=== PATIENT | male | born 1955 | race Two or more races ===

== ENCOUNTER 2021-06-11 22:14 | Emergency (ER) | payer OTHER ==
[~2021-06-11] VITALS: Ht 167.6 cm; Wt 89.5 kg
[2021-06-11 22:38] LABS: BASO # 0.1 x10^3/uL (0.0-0.2); BASO % 1 % (0-3); EOS # 0.2 x10^3/uL (0.0-0.7); EOS % 4 % (0-3); HEMATOCRIT 41.7 % (39.0-53.0); HEMOGLOBIN 14.2 g/dL (13.0-17.5); LYMPH # 2.2 x10^3/uL (1.0-4.8); LYMPH % 42 % (24-48); MEAN CORPUSCULAR HEMOGLOBIN 29 pg (25-35); MEAN CORPUSCULAR HGB CONC 34 g/dL (31-37); MEAN CORPUSCULAR VOLUME 84 fL (79-100); MONO # 0.4 x10^3/uL (0.0-1.1); MONO % 8 % (0-9); NEUT # 2.4 x10^3/uL (1.8-7.7); NEUT % 45 % (31-73); PLATELET COUNT 179 x10^3/uL (140-400); RED BLOOD COUNT 4.96 x10^6/uL (4.30-5.70); RED CELL DISTRIBUTION WIDTH 15.1 % (11.5-14.5); WHITE BLOOD COUNT 5.3 x10^3/uL (4.0-11.0)
[2021-06-11 22:47] LABS: CALCIUM 8.8 mg/dL (8.5-10.1); CREATININE 1.1 mg/dL (0.7-1.3); GFR 66.8; POTASSIUM 3.6 mmol/L (3.5-5.1); PROTHROMBIN TIME PATIENT 12.6 SEC (11.7-14.0)
[2021-06-11 22:52] LABS: ALBUMIN 4.2 g/dL (3.4-5.0); ALBUMIN/GLOBULIN RATIO 1.2 (1.0-1.7); TOTAL BILIRUBIN 0.9 mg/dL (0.2-1.0); TOTAL PROTEIN 7.7 g/dL (6.4-8.2)
--- NOTE | 2021-06-11 23:06 | RAD ---
EXAM: AP View of the chest DATE: 06/11/2021 11:00 PM INDICATION: Reason: chest pain / Spl. Instructions: / History: COMPARISON: No Prior FINDINGS: The heart is not enlarged. Aorta is tortuous. Mediastinal and hilar contours are normal. Patchy airspace opacities peripheral left lung and left lung base. Low lung volumes. No pleural effusion or pneumothorax. IMPRESSION: Patchy left-sided airspace opacities possibly atelectasis or developing consolidation. Electronically signed by: Adam Mendiola MD (06/11/2021 11:04 PM) [facility]
[2021-06-11] MEDS ORDERED: ASPIRIN CHEWABLE 81 MG TABLET. PO ONE (23:30)
[2021-06-12] MEDS ORDERED: KETOROLAC 30 MG/ML VIAL. IVP ONE (01:00)
[2021-06-12] MEDS ORDERED: ACET500T68 PO (03:20)
[2021-06-12] MEDS ORDERED: FAMO-63 PO (03:20)
--- NOTE | 2021-06-12 03:20 | PHYS DOC ---
Past Medical History Past Surgical History: No Surgical History Smoking Status: Never Smoker Alcohol Use: Occasionally Adult General Chief Complaint Chief Complaint: CHEST PAIN HPI HPI The patient is a 65-year-old male with a history of hypertension and inv-jasbktl-pynnwmriv diabetes. He is a non-smoker. He has no no other known medical problems which he takes daily medication. He presents for evaluation of 2 days of occasional sharp spasms of transient focal left-sided chest discomfort localizing a focal site underneath the nipple of his left breast. He will have twinges of discomfort which last for just a few seconds at a time and then resolve. Symptoms are not present currently. He last had a few seconds of discomfort while he was in the car on the way here. Discomfort is worse with movement of the arms and twisting of the torso. It is not worse with deep breathing or with exertion. He denies any other focal or specific symptoms and specifically denies fevers, nausea or vomiting, cold sweats or chills, upper respiratory congestion/rhinorrhea, cough, sore throat, shortness of breath, abdominal pain of any kind, flank pain, midline back pain, dysuria, hematuria, polyuria or oliguria, changes in bowel habits, pain or swelling to arms or legs. Patient is alert, pleasantly and appropriately interactive and in no acute distress with appropriate vital signs upon initial evaluation here in the emergency department. Review of Systems Review of Systems A 12 point review of systems was completed and was negative except where noted in HPI above. Current Medications Current Medications Current Medications Medications (Trade) Dose Ordered Sig/Marcos Start Time Stop Time Status Last Admin Dose Admin Aspirin (Aspirin Chewable) 324 mg 1X ONCE 06/11/21 23:30 06/11/21 23:31 DC 06/12/21 00:43 324 MG Ketorolac Tromethamine (Toradol 30mg Vial) 30 mg 1X ONCE 06/12/21 01:00 06/12/21 01:01 DC 06/12/21 00:46 30 MG Allergies Allergies Allergies Coded Allergies Type Severity Reaction Last Updated Verified No Known Drug Allergies 06/11/21 No Physical Exam Physical Exam Older male appearing nontoxic and in no acute distress. Head is normocephalic and atraumatic. Neck is supple and nontender. Oropharynx is moist. Lungs are clear to auscultation at all stations. There is normal S1 and S2 without rubs or gallops and capillary refill is appropriate, less than 2 seconds globally. Abdomen is soft, nontender and nondistended. No pulsatile irreducible mass. Skin is warm and dry without cyanosis, clubbing or edema. Psychiatrically, the patient demonstrates appropriate mood and affect and is a lert. Evaluation of the extremities reveals BUEs and BLEs neurovascularly intact distally with strength out of 5, sensation intact to light touch in all nerve distributions, radial, DP and PT pulse 2+ bilaterally, capillary refill less than 2 seconds, hands and feet warm and well-perfused. No dependent peripheral edema distally. No calf tenderness or swelling bilaterally. Homans test is negative bilaterally. Current Patient Data Vital Signs Vital Signs Date Time Temp Pulse Resp B/P (MAP) Pulse Ox O2 Delivery O2 Flow Rate FiO2 06/12/21 03:44 51 137/65 (89) 98 Room Air 06/11/21 22:31 99.0 17 99.0 Lab Values Laboratory Tests Test 06/11/21 22:27 06/11/21 22:31 06/12/21 01:15 White Blood Count 5.3 x10^3/uL (4.0-11.0) Red Blood Count 4.96 x10^6/uL (4.30-5.70) Hemoglobin 14.2 g/dL (13.0-17.5) Hematocrit 41.7 % (39.0-53.0) Mean Corpuscular Volume 84 fL (79-100) Mean Corpuscular Hemoglobin 29 pg (25-35) Mean Corpuscular Hemoglobin Concent 34 g/dL (31-37) Red Cell Distribution Width 15.1 % (11.5-14.5) H Platelet Count 179 x10^3/uL (140-400) Neutrophils (%) (Auto) 45 % (31-73) Lymphocytes (%) (Auto) 42 % (24-48) Monocytes (%) (Auto) 8 % (0-9) Eosinophils (%) (Auto) 4 % (0-3) H Basophils (%) (Auto) 1 % (0-3) Neutrophils # (Auto) 2.4 x10^3/uL (1.8-7.7) Lymphocytes # (Auto) 2.2 x10^3/uL (1.0-4.8) Monocytes # (Auto) 0.4 x10^3/uL (0.0-1.1) Eosinophils # (Auto) 0.2 x10^3/uL (0.0-0.7) Basophils # (Auto) 0.1 x10^3/uL (0.0-0.2) Prothrombin Time 12.6 SEC (11.7-14.0) Prothrombin Time INR 1.0 (0.8-1.1) Activated Partial Thromboplast Time 31 SEC (24-38) Sodium Level 138 mmol/L (136-145) Potassium Level 3.6 mmol/L (3.5-5.1) Chloride Level 103 mmol/L (98-107) Carbon Dioxide Level 26 mmol/L (21-32) Anion Gap 9 (6-14) Blood Urea Nitrogen 26 mg/dL (8-26) Creatinine 1.1 mg/dL (0.7-1.3) Estimated GFR (Cockcroft-Gault) 66.8 BUN/Creatinine Ratio 24 (6-20) H Glucose Level 168 mg/dL (70-99) H Calcium Level 8.8 mg/dL (8.5-10.1) Total Bilirubin 0.9 mg/dL (0.2-1.0) Aspartate Amino Transferase (AST) 7 U/L (15-37) L Alanine Aminotransferase (ALT) 19 U/L (16-63) Alkaline Phosphatase 87 U/L (46-116) Troponin I High Sensitivity < 4 ng/L (4-75) L 5 ng/L (4-75) IP-Niw-B-Type Natriuretic Peptide 72 pg/mL (0-124) Total Protein 7.7 g/dL (6.4-8.2) Albumin 4.2 g/dL (3.4-5.0) Albumin/Globulin Ratio 1.2 (1.0-1.7) Lipase 145 U/L (73-393) D-Dimer (Annie) 0.27 ug/mlFEU (0.00-0.50) Laboratory Tests 06/11/21 22:27 Laboratory Tests 06/11/21 22:27 EKG EKG Sinus rhythm, right bundle branch block, no acute ST elevation or depression, CA 194, QRS 98, QTc 453, EP interpretation. Nonischemic tracing. Radiology/Procedures Radiology/Procedures EXAM: AP View of the chest DATE: 06/11/2021 11:00 PM INDICATION: Reason: chest pain / Spl. Instructions: / History: COMPARISON: No Prior FINDINGS: The heart is not enlarged. Aorta is tortuous. Mediastinal and hilar contours are normal. Patchy airspace opacities peripheral left lung and left lung base. Low lung volumes. No pleural effusion or pneumothorax. IMPRESSION: Patchy left-sided airspace opacities possibly atelectasis or developing consolidation. Electronically signed by: Adam Mendiola MD (06/11/2021 11:04 PM) [facility] DICTATED and SIGNED BY: ADAM MENDIOLA MD DATE: 06/11/212302 Course & Med Decision Making Course & Med Decision Making HEART score 3 (points for age and 1-2 risk factors), low risk for MACE. Wells low risk for PE and D-dimer is negative. Atypical transient spasms with focal sharp left-sided discomfort, not clinically consistent with ACS. Labs, EKG and chest x-ray unremarkable. Delta troponin negative. Patient resting comfortably in no distress, reports no chest discomfort on serial reassessments (he has been observed for an extended period). In view of reassuring work-up in this well- appearing gentleman, will discharge home to follow-up very closely with primary care. Will also refer to cardiology for close follow-up of atypical chest pain. He understands that if he feels worse instead of better or develops other new symptoms of concern that he should return to the emergency department immediately for reevaluation. All questions are answered. We will prescribe some empiric Pepcid in the event symptoms relate to a GI etiology. Tylenol as needed for discomfort. Dragon Disclaimer Dragon Disclaimer This electronic medical record was generated, in whole or in part, using a voice recognition dictation system. Departure Departure Impression: Primary Impression: Other chest pain Disposition: HOME / SELF CARE / HOMELESS Condition: STABLE Referrals: ZACH AMATO MD Patient Instructions: Chest Pain (Nonspecific) Additional Instructions: Follow-up very closely with your primary care doctor in the office in the next 2 to 4 days for reevaluation of your symptoms and discussion of next best steps in care. You may take a 500 mg extra take Tylenol pill every 6 hours as needed for discomfort. Take a Pepcid antiacid pill twice a day for the next 2 weeks as well. Drink plenty of fluids and get plenty of rest. Return to the emergency department right away for worsening symptoms of any kind or with any other new symptoms of concern. We are referring you to cardiology (the heart doctors) for further evaluation of your chest discomfort. Please call to make an appointment to be seen at the telephone number provided and let the clinical laboratory manager know that this is an ER follow-up and that you need to be worked in to be seen in the next 2-4 days. Scripts Famotidine (PEPCID) 20 Mg Tablet 20 MG PO BID for 14 Days, #28 TAB Prov: AMY GRACIA MD 06/12/21 Acetaminophen (ACETAMINOPHEN) 500 Mg Tablet 1 TAB PO PRN Q6HRS PRN for pain or fever, #50 TAB 0 Refills Prov: AMY GRACIA MD 06/12/21 AMY GRACIA MD Jun 12, 2021 03:20
[2021-06-12 03:44] VITALS: BP 137/65
== END 2021-06-12 03:24 | disposition home or self-care (01) ==
LOC: ER 22:14
DX: R07.89 Other chest pain (principal); E11.9 Type 2 diabetes mellitus without complications; I10 Essential (primary) hypertension
CPT/HCPCS: 36415; 71045; 80053; 83690; 83880; 84484; 85025; 85379; 85610; 85730; 96374; 99285; J1885